=== PATIENT | female | born 1950 | race Caucasian/White ===

== ENCOUNTER → 2023-08-12 06:40 | Day surgery (SDC) | payer OTHER, SELFPAY | LOC: GI 06:40 | PROVIDERS: ATTENDING PHYSICIAN Internal Medicine Gastroenterology | DX: K22.89 Other specified disease of esophagus (principal); K44.9 Diaphragmatic hernia without obstruction or gangrene; K22.70 Barrett's esophagus without dysplasia; K25.9 Gastric ulcer, unspecified as acute or chronic, without hemorrhage or perforation; K31.89 Other diseases of stomach and duodenum; K29.50 Unspecified chronic gastritis without bleeding; R12 Heartburn | CPT/HCPCS: 43239; 88305; 88342 ==

== ENCOUNTER → 2024-03-13 08:31 | Outpatient (REF) | payer OTHER, SELFPAY | LOC: HWRAD 08:31 | PROVIDERS: ATTENDING PHYSICIAN Internal Medicine | DX: Z12.31 Encounter for screening mammogram for malignant neoplasm of breast (principal); Z78.0 Asymptomatic menopausal state | CPT/HCPCS: 77063; 77067; 77080 ==

== ENCOUNTER 2024-04-28 09:30 | Emergency (ER) | payer OTHER, SELFPAY ==
[2024-04-28 09:39] VITALS: BP 127/74
--- NOTE | 2024-04-28 11:07 | ED.GENMED ---
History of Present Illness
General
Chief Complaint: Fall
Source: patient
Time Seen by Provider: 04/28/24 10:41
History of Present Illness
History of Present Illness:
73-year-old female with previous history of CVA, GERD, depression presenting to the emergency department for evaluation after she had an accidental slip and fall yesterday afternoon striking her head on a curb, waking up this morning noting bruising
and swelling to the left forehead and left superior orbit. Patient without any loss of consciousness, vomiting, visual disturbances or any extremity related injury. She denies any use of anticoagulants. She states this morning due to the
ecchymosis above the left eye she decided that she should be further evaluated.
Past History
Past History
ED Past Medical History: GERD, HTN, Hypercholesterolemia and Psychiatric
ED Past Surgical History: Orthopedic and Other
Social History
Tobacco: Non-smoker
Alcohol: Occasional
Drug: None
Personal:
Living: with family
Review of Systems
Review of Systems
All Other Systems: ROS reviewed and negative except as documented in HPI and ROS
Phy Exam
Physical Exam
Physical Exam:
GENERAL: Alert , in no apparent distress
EYE: conjunctiva clear, superior left orbital ecchymosis without evidence for proptosis. Pupils 4 mm, PERRL, EOMI, no entrapment
Head: Contusion over the left forehead with mild abrasion but no active bleeding
NECK: Supple, no midline tenderness
ENT: mmm.
LUNGS: no acute respiratory distress
NEUROLOGICAL: Alert and oriented
SKIN: Warm and dry, skin intact.
MUSCULOSKELETAL: well perfused.
PSYCH: Normal and appropriate interaction.
Scores
Heart Failure Risk
Heart Failure Risk Score: Not Applicable
Heart Score for Chest Pain Patients
STEMI patient?: Not applicable
Withdrawal Assessment of Alcohol
Withdrawal Assessment Completed?: Not applicable
Course
Orders/Labs/Results
Orders:
Orders
04/28/24 10:52
CT Cervical Spine W/o Iv Contr Urgent
Comment:
Reason For Exam: fall, head/neck injury
CT Facial Bones W/o Iv Contras Urgent
Comment:
Reason For Exam: fall, left sided facial injury
04/28/24 10:53
CT Head W/o Iv Contrast Urgent
Comment:
Reason For Exam: fall, left sided forehead contusion
Vital Signs
Initial and Last Documented VS:
Initial Vital Signs
Temp Pulse Resp BP Pulse Ox
98.6 F 92 16 127/74 98
04/28/24 09:39 04/28/24 09:39 04/28/24 09:39 04/28/24 09:39 04/28/24 09:39
Last Documented Vital Signs
Temp Pulse Resp BP Pulse Ox
98.6 F 92 16 127/74 98
04/28/24 09:39 04/28/24 09:39 04/28/24 09:39 04/28/24 09:39 04/28/24 09:39
MDM/Problems Addressed
Differential Diagnosis Includes:
Contusion, concussion, intracranial bleeding, calvarial fracture, cervical spine injury
MDM/Problems Addressed:
73-year-old female presenting to the emergency department for evaluation of head injury sustained in accidental slip and fall. Patient with left-sided frontal scalp and left superior orbital injury noted on exam. CT scans ordered. Patient is
otherwise hemodynamically stable and neurologically intact.
*Radiology
Radiology exam reviewed: radiology read reviewed
*Pulse Oximetry
Patient hypoxic: no
*Critical Care Note
Total Time (30-74mins, 75-104mins- exclusive of procedures): Not Applicable
Patient Management
Escalation/DeEscalation of care consider admission/obs:
No acute intracranial abnormalities on CT, no facial fractures or cervical spine injury. Patient is stable for discharge home.
ED Attending Note
-
Portions of this chart may have been created with voice recognition software.� Occasional wrong word or��sound alike� substitutions may have occurred due to the inherent limitations of voice recognition software.
Discharge Plan
Departure
Patient Disposition: Home (Routine Discharge)
Date of Disposition: 04/28/24
Time of Disposition: 11:54
Patient with high blood pressure during this ER visit?: No
Discharge Problem:
Accidental fall, Contusion of face
Instructions: Contusion (DC)
Prescriptions:
No Action
multivitamin [Daily Multiple] 1 EACH tablet
1 ea PO DAILY
Patient Comments:
patient states she last took last week
simvastatin 20 MG tablet
20 mg PO HS
omeprazole 20 MG capsule,delayed release(DR/EC)
20 mg PO DAILY
duloxetine 60 MG capsule,delayed release(DR/EC)
60 mg PO HS
lutein 40 MG capsule
40 mg PO HS
sennosides [senna] 1 TABLET tablet
2 tab PO BID 0RF
acetaminophen 325 MG tablet
650 mg PO Q4HPRN PRN (Reason: for mild pain or fever >100.4F) 0RF
prednisone 10 MG tablet
40 mg PO TAPER Qty: 10 0RF
Rx Instructions:
4 tabs day 1, 3 tabs day 2, 2 tabs day 3, 1 tab last day, then stop
magnesium hydroxide 30 ML suspension
30 ml PO DAILYPRN PRN (Reason: constipation) 0RF
aspirin 325 MG tablet,delayed release (DR/EC)
325 mg PO DAILY 0RF
docusate sodium 100 MG capsule
100 mg PO BID 0RF
oxycodone 5 MG tablet
5 mg PO Q4HPRN PRN (Reason: moderate-severe pain) Qty: 90 0RF
Rx Instructions:
dx tka
1-2 tabs
cephalexin 500 MG capsule
500 mg PO BID Qty: 20 0RF
Referrals:
Jada Obrien MD [Family Provider] -
Interventions
Interventions:
*Risk Screen - Suicide Last Done: 04/28/24 09:39
*General Assessment Last Done: 04/28/24 09:39
*ED COVID-19 Vaccine History Last Done: 04/28/24 09:39
*Nursing Disposition Last Done: 04/28/24 12:08
ED-Musculoskeletal Assessment Last Done: 04/28/24 12:07
ED- Neurological Assessment Last Done: 04/28/24 12:07
ED-Skin Assessment Last Done: 04/28/24 12:07
Discharge Date and Time
Discharge Date/Time: 04/28/24 12:08
Print Language: [id number]
== END 2024-04-28 12:08 | disposition home or self-care (01) ==
LOC: EMR 09:30
PROVIDERS: EMERGENCY PHYSICIAN Emergency Medicine; FAMILY PHYSICIAN Internal Medicine
DX: S00.83XA Contusion of other part of head, initial encounter (principal); S00.81XA Abrasion of other part of head, initial encounter; W01.0XXA Fall on same level from slipping, tripping and stumbling without subsequent striking against object, initial encounter; E78.00 Pure hypercholesterolemia, unspecified; I10 Essential (primary) hypertension; K21.9 Gastro-esophageal reflux disease without esophagitis; Z86.73 Personal history of transient ischemic attack (TIA), and cerebral infarction without residual deficits
CPT/HCPCS: 99284; 70450; 70486; 72125

== ENCOUNTER → 2024-05-29 11:41 | Outpatient (REF) | payer OTHER, SELFPAY | LOC: HWRAD 11:41 | PROVIDERS: ATTENDING PHYSICIAN Internal Medicine | DX: M25.512 Pain in left shoulder (principal) | CPT/HCPCS: 73030 ==

== ENCOUNTER 2024-11-17 06:23 | Day surgery (SDC) | payer OTHER, SELFPAY ==
[2024-11-10 08:49] LABS: Hematocrit 40.0 % (37.0-47.0); Hemoglobin 12.8 g/dL (12.0-16.0); Mean Corp Hgb Conc. 32.0 g/dL (33.0-37.0); Mean Corpuscular Volume 83.7 fL (81.0-99.0); Platelet Count 209 10^3/uL (130-400); Red Cell Dist. Width 15.2 % (11.5-14.5)
[2024-11-10 09:55] LABS: Blood Urea Nitrogen 17 mg/dl (7-17); Calcium 9.3 mg/dl (8.4-10.2); Carbon Dioxide 29 mmol/L (22-30); Chloride 106 mmol/L (98-107); Glucose 93 mg/dl (70-99); Potassium 4.2 mmol/L (3.5-5.1); Sodium 143 mmol/L (135-145); eGFR > 60.00
[2024-11-10 13:43] VITALS: BMI 26.5
[2024-11-17] VITALS (11 sets, daily range): BP systolic 118–155; BP diastolic 54–87; BMI 26.5
[2024-11-17] MEDS: NORMOSOL-R/PLASMALYTE-A 1000 IV (11:18)
[2024-11-17] MEDS: HEPARIN 5000 UNITS SC (11:35)
[2024-11-17] MEDS: DILAUDID 0.25 MG IV ×2 (15:30→15:42)
== END 2024-11-17 19:35 | disposition home or self-care (01) ==
LOC: SDS 06:23
PROVIDERS: ATTENDING PHYSICIAN Obstetrics & Gynecology; FAMILY PHYSICIAN Internal Medicine
DX: N81.3 Complete uterovaginal prolapse (principal); N39.3 Stress incontinence (female) (male)
CPT/HCPCS: 57425; 58542; 57250; 57288; 36415; 80048; 85027; 86850; 86900; 86901; 87070; 88305; 93005; C1763; C1771